=== PATIENT | female | born 2005 | race Caucasian/White ===

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

== ENCOUNTER 2023-02-01 18:39 | Emergency (ER) | payer OTHER, SELFPAY ==
--- NOTE | 2023-02-01 18:41 | XR_ITS ---
PROCEDURE INFORMATION: Exam: XR Left Foot Exam date and time: 02/01/2023 6:51 PM Age: 17 years old Clinical indication: Pain; Heel; Left; Additional info: Fall TECHNIQUE: Imaging protocol: Radiologic exam of the left foot. Views: 3 or more views. COMPARISON: CR ANKCMLT XR ankle LT min 3V 04/30/2018 8:55 PM FINDINGS: Bones/joints: Normal. Soft tissues: Normal. IMPRESSION: No acute findings.
--- OUTSIDE RECORDS SUMMARY | 2023-02-01 18:42 | XMS_ITS | Continuity of Care Document ---
Author Name Unknown Address [address] [place] [address] [phone] Organization [facility] Phone Care Team Providers Care Head Of Talent Management Name Role Phone MONIQUE CASTAÑEDA Admitting Unavailable NGOC GARCIAS Primary Care NGOC GARCIAS Unavailable MONIQUE CASTAÑEDA Primary Attending Unavailabl e ALLERGIES AND ADVERSE REACTIONS ALLERGIES AND ADVERSE REACTIONS Code System Allergy Substance Adverse Reaction Date Reaction (Severity) Comment Status Reported By Updated By No Known Allergies EDISUSER on October 07, 2022 3:29:48 AM UTC RESULTS Patient: MEÑO Shine Date of : [birth year] 004 0 LABORATORY RESULTS ORDER 100: CBC AUTO W DIFF ( LOINC: 77468-0) ORDER DATE: October 07, 2022 3:43:00 AM UTC Specimen Source: EDTA PERFORMING LAB: [address] [id number] Result Comment: Final Result Date: October 07, 2022 4:22:00 AM UTC (TECH: CRM) LOINC TEST FLAG RESULT REFERENCE RANGE UPDA RADHA BY 6690-2 Leukocytes [#/volume] in Blood by Automated count H 14.0 K/ul 4.0 K/ul - 10.5 K/ul October 07, 2022 4:22:00 AM UTC (TECH: CRM) 789-8 Erythrocytes [#/volume] in Blood by Automated count N 4.8 M/mm3 4.2 M/mm3 - 6.4 M/mm3 October 07, 2022 4:22:00 AM UTC (TECH: CRM) 718-7 Hemoglobin [Mass/volume] in Blood N 13.6 gm/dl 12.5 gm/dl - 16.0 gm/dl October 07, 2022 4:22:00 AM UTC (TECH: CRM) 04048-6 Hematocrit [Volume Fraction] of Blood N 41.2 % 37.0 % - 47.0 % October 07, 2022 4:22:00 AM UTC (TECH: CRM) 787-2 Erythrocyte mean corpuscular volume [Entitic volume] by Automated count N 86.4 fl 78 fl - 100 fl October 07, 2022 4:22:00 AM UTC (TECH: CRM) 785-6 Erythrocyte mean corpuscular hemoglobin [Entitic mass] by Automated count N 28.5 pg 27 pg - 31 pg October 07, 2022 4:22:00 AM UTC (TECH: CRM) 786-4 Erythrocyte mean corpuscular hemoglobin concentration [Mass/volume] by Automated count N 33.0 g/dl 32 g/dl - 36 g/dl October 07, 2022 4:22:00 AM UTC (TECH: CRM) 51866-9 Erythrocyte distribution width [Ratio] N 12.8 % 11.5 % - 14.0 % October 07, 2022 4:22:00 AM UTC (TECH: [employer]) 777-3 Platelets [#/volume] in Blood by Automated count N 255 K/ul 150 K/ul - 450 K/ul October 07, 2022 4:22:00 AM UTC (TECH: [employer]) 03666-6 Neutrophils/100 leukocytes in Blood H 65.3 % 43 % - 65 % October 07, 2022 4:22:00 AM UTC (TECH: CRM) 736-9 Lymphocytes/100 leukocytes in Blood by Automated count N 24.0 % 20.5 % - 45.5 % October 07, 2022 4:22:00 AM UTC (TECH: [employer]) 5905-5 Monocytes/100 leukocytes in Blood by Automated count N 7.5 % 5.5 % - 11.7 % October 07, 2022 4:22:00 AM UTC (TECH: CRM) 713-8 Eosinophils/100 leukocytes in Blood by Automated count N 2.0 % 0.9 % - 2.9 % October 07, 2022 4:22:00 AM UTC (TECH: CRM) 706-2 Basophils/100 leukocytes in Blood by Automated count N 0.5 % 0.2 % - 1.0 % October 07, 2022 4:22:00 AM UTC (TECH: [employer]) 38364-4 Neutrophils [#/volume] in Blood H 9.2 K/uL 2.2 K/uL - 4.8 K/uL October 07, 2022 4:22:00 AM UTC (TECH: CRM) 731-0 Lymphocytes [#/volume] in Blood by Automated count H 3.4 CELL/MCL 1.3 CELL/MCL - 2.9 CELL/MCL October 07, 2022 4:22:00 AM UTC (TECH: CRM) 742-7 Monocytes [#/volume] in Blood by Automated count H 1.1 CELL/MCL 0.3 CELL/MCL - 0.8 CELL/MCL October 07, 2022 4:22:00 AM UTC (TECH: CRM) 711-2 Eosinophils [#/volume] in Blood by Automated count H 0.3 CELL/MCL 0 CELL/MCL - 0.2 CELL/MCL October 07, 2022 4:22:00 AM UTC (TECH: CRM) 704-7 Basophils [#/volume] in Blood by Automated count N 0.1 CELL/MCL 0.0 CELL/MCL - 1.0 CELL/MCL October 07, 2022 4:22:00 AM UTC (TECH: CRM) 88306-8 Manual Differential panel - Blood N NO October 07, 2022 4:22:00 AM UTC (TECH: CRM) ORDER 200: COMP METABOLIC PA CHLOE (LOINC: 04722-1) ORDER DATE: October 07, 2022 3:43:00 AM UT Specimen Source: PLASMA PERFORMING LAB: [address] [id number] Result Comment: Final Result Date: October 07, 2022 5:28:00 AM UT (TECH: [email or web address]) LOINC TEST FLAG RESULT REFERENCE RANGE UPDATED BY 2951-2 Sodium [Moles/volume ] in Serum or Plasma N 137 mmol/L 136 mmol/L - 145 mmol/L October 07, 2022 5:28:00 AM UTC (TECH: ME) 2823-3 Potassium [Moles/volume] in Serum or Plasma N 3.7 mmol/L 3.6 mmol/L - 5.0 mmol/L October 07, 2022 5:28:00 AM UTC (TECH: ME) 2075-0 Chloride [Moles/volume] in Serum or Plasma N 101 mmol/L 98 mmol/L - 107 mmol/L October 07, 2022 5:28:00 AM UT ([employer]: [email or web address]) 8-9 Carbon dioxide, tota l [Moles/volume] in Serum or Plasma N 27.0 mmol/L 21.0 mmol/L - 32.0 mmol/L October 07, 2022 5:28:00 AM [facility] ([employer]: [email or web address]) 41750-3 Anion gap in Blood N 12.7 S eptember 2022 5:28:00 AM [facility] (TECH: [email or web address]) 2345-7 Glucose [Mass/volume ] in Serum or Plasma H 133 mg/dl 70 mg/dl - 120 mg/dl October 07, 2022 5:28:00 AM [facility] (TECH: [email or web address]) 6299-2 Urea nitrogen [Mass/volume] in Blood N 8 mg/dL 7 mg/dL - 18 mg/dL October 07, 2022 5:28:00 AM [facility] ([employer]: [email or web address]) 64463-0 Creatinine [Moles/volume] in Serum or Plasma --baseline N 0.7 mg/dL 0.6 mg/dL - 1.3 mg/dL October 07, 2022 5:28:00 AM [facility] ([employer]: [email or web address]) 02965-5 Glomerular filtratio n rate/1.73 sq M.predicted by Creatinine-based formula (MDRD) N >60 mlpermin 60 mlpermin October 07, 2022 5:28:00 AM [facility] (TECH: [email or web address]) 2885-2 Protein [Mass/volume ] in Serum or Plasma N 8.2 g/dl 6.4 g/dl - 8.2 g/dl October 07, 2022 5:28:00 AM [facility] (TECH: [email or web address]) 1751-7 Albumin [Mass/volume ] in Serum or Plasma N 3.7 g/dl 3.4 g/dl - 5.0 g/dl October 07, 2022 5:28:00 AM [facility] ([employer]: [email or web address]) 2336-6 Globulin [Mass/volum e] in Serum N 4.5 October 07, 2022 5:28:00 AM [facility] (TECH: [email or web address]) 1759-0 Albumin/Globulin [Ma ss Ratio] in Serum or Plasma N 0.8 0.7 - 2 October 07, 2022 5:28:00 AM [facility] ([employer]) 38534-0 Calcium [Mass/volume ] in Serum or Plasma N 9.5 mg/dl 8.5 mg/dl - 10.5 mg/dl October 07, 2022 5:28:00 AM [facility] ([employer]) 1974- Bilirubin.total [Mass/volume] in Serum or Plasma N 0.20 mg/dL 0.10 mg/dL - 1.00 mg/dL October 07, 2022 5:28:00 AM [facility] ([employer]) 0-8 Aspartate aminotransferase [Enzymatic activity/volume] in Serum or Plasma N 28 U/L 0 U/L - 37 U/L October 07, 2022 5:28:00 AM UT ([employer]) 1742-6 Alanine aminotransferase [Enzymatic activity/volume] in Serum or Plasma N 58 U/L 0 U/L - 65 U/L October 07, 2022 5:28:00 AM [facility] ([employer]) 6768-6 Alkaline phosphatase [Enzymatic activity/volume] in Serum or Plasma N 103 U/L 46 U/L - 116 U/L October 07, 2022 5:28:00 AM [facility] ([employer]) ORDER 300: HCG QUALITATIVE S GRANT (LOINC: 2117-09) ORDER DATE: October 07, 2022 3:43:00 AM [facility] Specimen Source: SERUM PERFORMING LAB: [address] [id number] Result Comment: Final Result Date: October 07, 2022 4:34:00 AM [facility] ([employer]) LOINC TEST FLAG RESULT REFERENCE RANGE UPDA RADHA BY 2117-09 Choriogonadotropin ( test) [Presence] in Serum or Plasma N NEGATIVE NEGATIVE October 07, 2022 4:34:00 AM [facility] ([employer]) 09495-6 Reagent Lot number N [id number] S eptember 2022 4:34:00 AM [facility] ([employer]) 63197-8 Choriogonadotropin [Units/volume] in Serum or Plasma N 07-28-2023 October 07 4:34:00 AM [facility] (TECH: [email or web address]) 34141-7 Internal control result N OK POSITI VE October 07, 2022 4:34:00 AM [facility] ([employer]: [email or web address]) LABORATORY NARRATIVE RESULTS Information is not available RADIOLOGY RESULTS ORDER 400: CT BRAIN W/O ([place]: [address]-2) ORDER DATE: October 07, 2022 3:43:00 AM UT PATHOLOGY NARRATIVE RESULTS Information is not available MICROBIOLOGY RESULTS No Micro Labs/Results Exist for Patient BLOOD ADMIN RESULTS Information is not available MEDICATIONS HOME MEDICATIONS Status RXNORM Medication Dose Route Frequency Dates Comments R eported By Updated By Drug Treatment Unknown DISCHARGE MEDICATIONS Status RXNORM Medication Dose Route Frequency Dates Comments Physic courtney Updated By No Discharge Medication Info rmation Available INPATIENT MEDICATIONS Status RXNORM Medication Dose Route Frequency Rate Quantity Dates Comments Physician Updated By Vibha inued [id number] prochlorper azine (COMPAZINE) 10 MG/2 ML SOLN 10.0 MG IV PUSH ONE TIME ONLY (SCHEDULED DOSE) Start: 2022 3:55:0 0 AM UT End: 2022 4:57:0 0 AM UT LUDOVIPaul WATTSOR D INTERFAC ED on 2022 4:00:00 AM UT Vibha inued [id number] ketorolac (TORADOL) 15 MG/ML SOLN 15.0 MG IV PUSH ONE TIME ONLY (SCHEDULED DOSE) Start: 2022 3:55:0 0 AM UTC End: 2022 4:57:0 0 AM UT LUDSILVIAY MONIQUE D INTERFAC ED on 2022 4:00:00 AM UT SOCIAL HISTORY SOCIAL HISTORY SNOMED-CT Social History Element Description Effective Dates Offered Cessation Comment UpdatedBy [id number] Smoking Status Unknown If Ever Smoked SOCIAL HISTORY - Gender Sex: Female SOCIAL HISTORY - Sexual Behavior Sexual Orientation Gender Identity SNOMED-CT Description SNO MED -CT Description Activity Level No of Partners Partner Type UpdatedBy VITAL SIGNS PATIENT VITAL SIGNS This section displays the mo st recent value for each vital sign as of October 07, 2022 5:57:20 AM UT Loinc Code Vital Sign Activity Date Result Updated By 8867-4 Heart rate October 07 3:45:00 AM UT 106 /min EDISUSER on October 07, 2022 4:06:30 AM [facility] PEDIATRIC GROWTH CHART - VITAL SIGNS This section displays Head C ircumference Percentile, Weight for Length Percentile and BMI Percentile Loinc Code Pediatric Measure Age (Months) Result Updat ed By HEALTH CONCERNS Problems Concern Status Health Concern problem infor mation not available. Smoking Status Status Years Used Consumed packs p er day Health Concern smoking histo ry information not available. Family History Concern Status Health Concern family histor y information not available. ENCOUNTERS ENCOUNTER INFORMATION Reason for Visit KNOT ON HEAD/HEADACH E, LOW BACK PAIN Admission October 07, 2022 3:07:00 AM UTC [place] [id number] [facility] [id number] Discharge October 07, 2022 4:57:00 AM UTC LEFT AGAINST ADVICE OR DISCONTINUED ENCOUNTER DIAGNOSES Notes information is not chaz ilable. Code System Diagnosis Onset Date Diagnosis information is not available. ABSTRACT DIAGNOSES Code System Diagnosis Updated By Abstract Diagnosis informati on is not available. CARE TEAM Care Head Of Talent Management Role MONIQUE CASTAÑEDA Admitting NGOC GARCIAS Primary Care NGOC GARCIAS Referring MONIQUE CASTAÑEDA Primary Attending CARE TEAM CARE insurance risk manager Role on Team Status Start Date End Date Update d By DEITER GROSSMAN PCP normal October 07, 2022 3:38:35 AM UTC October 07, 2022 4:57:00 AM UTC [id number] on October 07, 2022 3:38:35 AM UTC DIETER GROSSMAN Referring normal October 07, 2022 3:38:35 AM UTC October 07, 2022 4:57:00 AM UTC [id number] on October 07, 2022 3:38:35 AM UTC GARRY Shine Attending normal October 07, 2022 3:38:35 AM UTC October 07, 2022 4:57:00 AM UTC [id number] on October 07, 2022 3:38:35 AM UTC GARRY Shine Admitting normal October 07, 2022 3:38:35 AM UTC October 07, 2022 4:57:00 AM UTC [id number] on October 07, 2022 3:38:35 AM UTC NO DEFINED PRIMARY C PCP normal October 07, 2022 3:08:12 AM UTC October 07, 2022 3:38:35 AM UTC [id number] on October 07, 2022 3:38:35 AM UTC
--- OUTSIDE RECORDS SUMMARY | 2023-02-01 18:42 | XMS_ITS | Continuity of Care Document ---
Author Name Unknown Address [address] [place] [phone] Organization [facility] Phone Care Team Providers Care Gear Coding Machine Operator Name Role Phone MONIQUE CASTAÑEDA Admitting Unavailable [...] 100: CBC AUTO W DIFF ( LOINC: 87218-2) ORDER DATE: October 07, 2022 3:43:00 AM UTC Specimen Source: EDTA PERFORMING LAB: [address] [id number] Result Comment: Final Result Date: October 07, [...] 07, 2022 4:22:00 AM UTC (TECH: CRM) 13526-5 Hematocrit [Volume Fraction] of Blood N 41.2 [...] 07, 2022 4:22:00 AM UTC (TECH: CRM) 70472-8 Erythrocyte distribution width [Ratio] N 12.8 % 11.5 % - 14.0 % October 07, 2022 4:22:00 AM UTC (TECH: [employer]) 777-3 Platelets [#/volume] in Blood by Automated count N 255 K/ul 150 K/ul - 450 K/ul October 07, 2022 4:22:00 AM UTC (TECH: [employer]) 02670-2 Neutrophils/100 leukocytes in Blood H 65.3 % 43 % - 65 % October 07, 2022 4:22:00 AM UTC (TECH: CRM) 736-9 Lymphocytes/100 leukocytes in Blood by Automated count N 24.0 % 20.5 % - 45.5 % October 07, 2022 4:22:00 AM UTC (TECH: [employer]) 5905-5 Monocytes/100 leukocytes in Blood by Automated [...] October 07, 2022 4:22:00 AM UTC (TECH: [employer]) 92753-4 Neutrophils [#/volume] in Blood H 9.2 K/uL [...] 07, 2022 4:22:00 AM UTC (TECH: CRM) 02065-4 Manual Differential panel - Blood N NO October 07, 2022 4:22:00 AM UTC (TECH: CRM) ORDER 200: COMP METABOLIC PA CHLOE (LOINC: 06501-0) ORDER DATE: October 07, 2022 3:43:00 AM UT Specimen Source: PLASMA PERFORMING LAB: [address] [id number] Result Comment: Final Result Date: October 07, 2022 5:28:00 AM UT (TECH: [employer]) LOINC TEST FLAG RESULT REFERENCE RANGE UPDATED [...] mmol/L October 07, 2022 5:28:00 AM UT ([employer]: [employer]) 8-9 Carbon dioxide, tota l [Moles/volume] in Serum or Plasma N 27.0 mmol/L 21.0 mmol/L - 32.0 mmol/L October 07, 2022 5:28:00 AM [facility] ([employer]: [employer]) 90246-6 Anion gap in Blood N 12.7 S eptember 2022 5:28:00 AM [facility] (TECH: [employer]) 2345-7 Glucose [Mass/volume ] in Serum or Plasma H 133 mg/dl 70 mg/dl - 120 mg/dl October 07, 2022 5:28:00 AM [facility] (TECH: [employer]) 6299-2 Urea nitrogen [Mass/volume] in Blood N 8 mg/dL 7 mg/dL - 18 mg/dL October 07, 2022 5:28:00 AM [facility] ([employer]: [employer]) 04805-7 Creatinine [Moles/volume] in Serum or Plasma --baseline N 0.7 mg/dL 0.6 mg/dL - 1.3 mg/dL October 07, 2022 5:28:00 AM [facility] ([employer]: [employer]) 85582-6 Glomerular filtratio n rate/1.73 sq M.predicted by Creatinine-based formula (MDRD) N >60 mlpermin 60 mlpermin October 07, 2022 5:28:00 AM [facility] (TECH: [employer]) 2885-2 Protein [Mass/volume ] in Serum or Plasma N 8.2 g/dl 6.4 g/dl - 8.2 g/dl October 07, 2022 5:28:00 AM [facility] (TECH: [employer]) 1751-7 Albumin [Mass/volume ] in Serum or Plasma N 3.7 g/dl 3.4 g/dl - 5.0 g/dl October 07, 2022 5:28:00 AM [facility] ([employer]: [employer]) 2336-6 Globulin [Mass/volum e] in Serum N 4.5 October 07, 2022 5:28:00 AM [facility] (TECH: [employer]) 1759-0 Albumin/Globulin [Ma ss Ratio] in Serum or Plasma N 0.8 0.7 - 2 October 07, 2022 5:28:00 AM [facility] ([employer]) 74003-3 Calcium [Mass/volume ] in Serum or Plasma N 9.5 mg/dl 8.5 mg/dl - 10.5 mg/dl October 07, 2022 5:28:00 AM [facility] ([employer]) 1974- Bilirubin.total [Mass/volume] in Serum or Plasma N 0.20 mg/dL 0.10 mg/dL - 1.00 mg/dL October 07, 2022 5:28:00 AM [facility] ([employer]) 0-8 Aspartate aminotransferase [Enzymatic activity/volume] in Serum or Plasma N 28 U/L 0 U/L - 37 U/L October 07, 2022 5:28:00 AM UT ([employer]) 1742-6 Alanine aminotransferase [Enzymatic activity/volume] in Serum or Plasma N 58 U/L 0 U/L - 65 U/L October 07, 2022 5:28:00 AM [facility] ([employer]) 6768-6 Alkaline phosphatase [Enzymatic activity/volume] in Serum or Plasma N 103 U/L 46 U/L - 116 U/L October 07, 2022 5:28:00 AM [facility] ([employer]) ORDER 300: HCG QUALITATIVE S GRANT (LOINC: 2117-09) ORDER DATE: October 07, 2022 3:43:00 AM [facility] Specimen Source: SERUM PERFORMING LAB: [address] [id number] Result Comment: Final Result Date: October 07, 2022 4:34:00 AM [facility] ([employer]) LOINC TEST FLAG RESULT REFERENCE RANGE UPDA RADHA BY 2117-09 Choriogonadotropin ( test) [Presence] in Serum or Plasma N NEGATIVE NEGATIVE October 07, 2022 4:34:00 AM [facility] ([employer]) 84140-6 Reagent Lot number N [id number] S eptember 2022 4:34:00 AM [facility] ([employer]) 31458-4 Choriogonadotropin [Units/volume] in Serum or Plasma N 07-28-2023 October 07 4:34:00 AM [facility] (TECH: [employer]) 19920-6 Internal control result N OK POSITI VE October 07, 2022 4:34:00 AM [facility] ([employer]: [employer]) LABORATORY NARRATIVE RESULTS Information is not available RADIOLOGY RESULTS ORDER 400: CT BRAIN W/O ([place]STOPHER [place]: [address]-3) ORDER DATE: October 07, 2022 3:43:00 AM [...] Dates Comments Physician Updated By Vibha inued [id number] prochlorper azine (COMPAZINE) 10 MG/2 ML SOLN 10.0 MG IV PUSH ONE TIME ONLY (SCHEDULED DOSE) Start: 2022 3:55:0 0 AM UT End: 2022 4:57:0 0 AM UT LUDOVIPaul WATTSOR D INTERFAC ED on 2022 4:00:00 AM UT Vibha inued [id number] ketorolac (TORADOL) 15 MG/ML SOLN 15.0 MG IV PUSH ONE TIME ONLY (SCHEDULED DOSE) Start: 2022 3:55:0 0 AM UTC End: 2022 4:57:0 0 AM UT LUDSILVIAPaul MONIQUE D INTERFAC ED on 2022 4:00:00 AM [facility] SOCIAL HISTORY SOCIAL HISTORY SNOMED-CT Social History Element Description Effective Dates Offered Cessation Comment UpdatedBy [id number] Smoking Status Unknown If Ever Smoked SOCIAL HISTORY - Gender Sex: Female SOCIAL HISTORY - Sexual Behavior Sexual Orientation Gender Identity SNOMED-CT Description SNO MED -CT Description Activity Level No of Partners Partner Type UpdatedBy VITAL SIGNS PATIENT VITAL SIGNS This section displays the mo st recent value for each vital sign as of October 13, 2022 1:28:15 PM UT Loinc Code Vital Sign Activity Date [...] PAIN Admission October 07, 2022 3:07:00 AM [place] [id number] [facility] [id number] Discharge October 07, 2022 4:57:00 AM UT LEFT AGAINST ADVICE OR DISCONTINUED ENCOUNTER DIAGNOSES Notes information is not chaz ilable. Code System Diagnosis Onset Date Diagnosis information is not available. ABSTRACT DIAGNOSES Code System Diagnosis Updated By R51.9 ICD10 HEADACHE, UNSPECIFIED [id number] on October 13, 2022 1:27:18 PM UT R51.9 ICD10 HEADACHE, UNSPECIFIED [id number] 7 on October 13, 2022 1:27:18 PM UT Z28.310 ICD10 UNVACCINATED FOR COVID-19 DB E4857 on October 13, 2022 1:27:18 PM UT Z53.29 ICD10 PROCEDURE AND TR EATMENT NOT CARRIED OUT BECAUSE OF PATIENT'S DECISION FOR OTHER REASONS [id number] on October 13, 2022 1:27:18 PM [facility] CARE TEAM Care Gear Coding Machine Operator Role MONIQUE CASTAÑEDA Admitting NGOC GARCIAS Primary Care NGOC GARCIAS Referring MONIQUE CASTAÑEDA Primary Attending CARE TEAM CARE combo welder Role on Team Status Start Date End Date Update d By DIETER GROSSMAN PCP normal October 07, 2022 3:38:35 AM UT October 07, 2022 4:57:00 AM UT [id number] on October 07, 2022 3:38:35 AM UT DIETER GROSSMAN Referring normal October 07, 2022 3:38:35 AM UT October 07, 2022 4:57:00 AM UT [id number] on October 07, 2022 3:38:35 AM [facility] GARRY Shine Attending normal October 07, 2022 3:38:35 AM UT October 07, 2022 4:57:00 AM UT [id number] on October 07, 2022 3:38:35 AM [facility] GARRY Shine Admitting normal October 07, 2022 3:38:35 AM UT October 07, 2022 4:57:00 AM UT [id number] on October 07, 2022 3:38:35 AM UT NO DEFINED PRIMARY C PCP normal October 07, 2022 3:08:12 AM UT October 07, 2022 3:38:35 AM [facility] [id number] on October 07, 2022 3:38:35 AM UT
[2023-02-01 19:18] VITALS: BP 128/86; PULSE 78; RESP 19; TEMP 37; O2SAT 99; BMI 31.1
--- NOTE | 2023-02-01 19:30 | EXP.UTC ---
Discharge Plan Disposition Patient Disposition: Home, Self-Care Condition: Good Prescriptions Prescriptions: New bacitracin 500 unit/gram ointment 1 applic topical TID 10 Days Qty: 30 0RF Rx Instructions: apply to wound on left foot as directed No Action methylphenidate HCl [Concerta] 54 mg tablet extended release 24hr 54 mg PO DAILY fluoxetine 10 mg capsule 10 mg PO DAILY ixbmbmerqtjggen-uowkgghfu-VL [Bromfed DM] 2-30-10 mg/5 mL Syrup 5 ml PO Q6H PRN (Reason: Cough) Qty: 240 0RF ondansetron 4 mg Tablet,Disintegrating 4 mg PO Q8H PRN (Reason: Nausea) Qty: 12 0RF Referrals Follow up/Referrals: Harry Hassan MD [Primary Care Provider] - See instructions Activity Restrictions/Add. Instructions Additional Instructions/Restrictions: Keep wound clean and dry Use topical Bacitracin as prescribed Watch area for signs of infection and if noted follow up with your Family Doctor Clinical Impressions Clinical Impression: Abrasion of foot Qualifiers: Encounter type: initial encounter Laterality: left Qualified Code(s): S90.812A - Abrasion, left foot, initial encounter Instructions Patient Instructions: DI for Abrasion, Bacitracin Topical Discharge ED Provider: Ivonne Medina [facility] General Stated complaint: AO fall 02/01, left foot pain Time Seen by Provider: 02/01/23 19:30 Description of Symptoms (Recalled from Triage Doc. by RN): pt states that she slipped off of a step and then stepped on a nail injurying her left foot HEENT Symptoms (Recalled from RN notes): No Resp Symptoms (Recalled from RN notes): No Skin Symptoms (Recalled from RN notes): No MS Symptoms (Recalled from RN notes): No Functional Status (Recalled from RN notes): wnl History of Present Illness Provider Complaint: Patient states that she was coming down the steps at her mothers this morning when he foot slipped and there was a nail sticking out and scratched her on the back of her left heel area States that this evening her foot was hurting when she would try to walk on it so she came in to get it checked Related Data Home Medications Medication Instructions Recorded Confirmed fluoxetine 10 mg capsule 10 mg PO DAILY 12/21/21 12/21/21 methylphenidate HCl 54 mg 54 mg PO DAILY 12/21/21 12/21/21 tablet,extended release 24 hr (Concerta) Previous Rx's Medication Instructions Recorded ujfouoxreaizmqk-amjcvwgfutgsrob-FP 5 ml PO Q6H PRN Cough #240 mL 12/25/21 2 mg-30 mg-10 mg/5 mL oral syrup (Bromfed DM) ondansetron 4 mg disintegrating 4 mg PO Q8H PRN Nausea #12 tabs 12/25/21 tablet bacitracin 500 unit/gram topical 1 applic topical TID 10 days #30 02/01/23 ointment grams Allergies Allergy/AdvReac Type Severity Reaction Status Date / Time amoxicillin [AMOXICILLIN] Allergy Unknown Verified 12/25/21 20:00 Worker's Comp Is this a Worker's Comp case?: No [facility] Disclaimer: The information contained in this section may have been updated after the patient was seen, as this information can be updated by other users. Medical History Nexplanon removal Surgical History History of placement of ear tubes Social History Smoking Status: Never smoker alcohol intake: never substance use type: denies use current occupational status: student Travel in the last 8 weeks: None ROS Obtained: Yes All systems reviewed & no additional complaints except as documented and Yes Systems reviewed as appropriate & no additional complaints except as documented Constitutional Constitutional: Reports system reviewed and no additional complaints, except as documented and Reports as per HPI ENT Ears, Nose, Mouth, and Throat: Reports system reviewed and no additional complaints, except as documented and Reports as per HPI Cardiovascular Cardiovascular: Reports system reviewed and no additional complaints, except as documented and Reports as per HPI Respiratory Respiratory: Reports system reviewed and no additional complaints, except as documented and Reports as per HPI Gastrointestinal Gastrointestingal: Reports system reviewed and no additional complaints, except as documented and as per HPI Musculoskeletal Musculoskeletal: Reports system reviewed and no additional complaints, except as documented and Reports as per HPI Integumentary/Breasts Skin/Breast: Reports system reviewed and no additional complaints, except as documented and Reports as per HPI Comments: abrasion on back of left heel Physical Exam General General appearance: alert and in no apparent distress ENT ENT exam: Present mucous membranes moist Respiratory Respiratory exam: Present normal lung sounds bilaterally; Absent respiratory distress or wheezes Cardiovascular Cardiovascular exam: Present regular rate, normal rhythm and normal heart sounds Expanded Lower Extremity Exam Left: Ankle image: 1. small abrasion noted no active bleeding cleaned well with hibacleanse and saline Gait: observed and limited by pain Neurological Exam Neurological exam: Present alert, oriented X3 and normal gait Medical Decision Making Patrick Inquiry Pt receiving controlled substance: No Patrick was queried for this patient: No Vital Signs: 02/01/23 19:18 Temperature 98.6 F Temperature Source Oral Pulse Rate [Right Brachial] 78 Respiratory Rate 19 Blood Pressure [Right Arm] 128/86 Blood Pressure Mean [Right Arm] 100 Blood Pressure Source [Right Arm] Automatic Cuff Blood Pressure Position [Right Arm] Sitting 02 Sat by Pulse Oximetry 99 Orders (Tests/Meds): ORDERS Category Date Time Status XR foot LT min 3V Stat Exams 02/01/23 18:41 Completed Radiology Data #1: Image(s): Foot/Toes Image Reviewed: Yes I have reviewed radiologist's interpretation FINDINGS: Bones/joints: Normal. Soft tissues: Normal. IMPRESSION: No acute findings. Medical Decision Narrative: patient unsure of last tetanus
[2023-02-01] MEDS: TET/DIPHTH/PERT-ADULT 0.5ML SYRINGE 0.5 ML IM (19:43)
[2023-02-01 20:07] VITALS: BP 128/86; PULSE 78; RESP 19; TEMP 37; O2SAT 99
== END 2023-02-01 20:08 | disposition home or self-care (01) ==
PROVIDERS: Emergency Provider Nurse Practitioner; PCP Family Medicine
DX: S90.812A Abrasion, left foot, initial encounter (principal); M79.672 Pain in left foot; W10.8XXA Fall (on) (from) other stairs and steps, initial encounter
CPT/HCPCS: 73630; 90471; 90715; 99212; 99214; G0463

== ENCOUNTER 2023-04-25 11:49 | Outpatient (CLI) | payer OTHER, SELFPAY ==
[2023-04-25 12:28] LABS: Basophils # 0.1 K/mm3 (0-0.2); Basophils % 1.2 % (0.1-2.0); Eosinophils # 0.3 K/mm3 (0.0-0.4); Eosinophils % 2.8 % (0.1-12.0); Hematocrit 43.6 % (37.0-47.0); Hemoglobin 14.3 g/dL (12.2-16.2); Lymphocytes % 27.5 % (10-50); Mean Corpuscular HGB Conc 32.9 g/dL (31.8-35.4); Mean Corpuscular Hemoglobin 29.6 pg (27.0-31.2); Mean Corpuscular Volume 90.2 fl (81-99); Mean Platelet Volume 8.8 fl (7.4-10.4); Monocytes # 0.4 K/mm3 (0.1-1.0); Monocytes % 4.1 % (1.7-9.3); Neutrophils # 6.9 K/mm3 (1.8-7.8); Neutrophils % 64.5 % (37.0-80.0); Platelet Count 255 K/mm3 (142-424); Red Blood Count 4.84 M/mm3 (4.20-5.40); Red Cell Distribution Width 13.6 % (11.5-17.5); White Blood Count 10.7 K/mm3 (4.5-13.0)
[2023-04-25 12:51] LABS: Alanine Aminotransferase 39 U/L (12-78); Albumin Level 4.3 g/dl (3.5-5.0); Albumin/Globulin Ratio 1.6 (1.1-1.8); Alkaline Phosphatase 79 U/L (38-126); Anion Gap 9.9 mEq/L (5-15); Aspartate Amino Transferase 35 U/L (14-36); Bilirubin,Total 0.3 mg/dl (0.2-1.3); Blood Urea Nitrogen 10 mg/dl (7-17); Calcium 9.5 mg/dl (8.4-10.2); Carbon Dioxide 29 mmol/L (22.0-30.0); Chloride 104 mmol/L (98-107); Estimated Glomerular Filt Rate 127 ml/min (>60); GFR (African American) 154 ML/MIN (>60); Globulin 2.7 g/dL (1.3-3.2); Glucose 100 mg/dl (74-100); Potassium 3.9 mmoL/L (3.5-5.1); Sodium 139 mmol/L (136-145)
[2023-04-25 13:22] LABS: Thyroid Stimulating Hormone 0.89 uIU/mL (0.465-4.68)
[2023-04-26 08:40] LABS: Estradiol 38.5 pg/mL (.); FSH 5.4 mIU/mL (.); Progesterone 0.1 ng/mL (.); Prolactin 9.3 ng/mL (4.8-33.4)
[2023-04-28 19:10] LABS: Testosterone, Total, LC/MS 26.1 ng/dL (10.0-55.0)
== END 2023-04-25 23:59 ==
LOC: LAB 11:49
PROVIDERS: PCP Family Medicine; Visit Provider Obstetrics & Gynecology
DX: N91.1 Secondary amenorrhea (principal)
CPT/HCPCS: 36415; 80053; 82626; 82670; 83001; 83002; 83498; 84144; 84146; 84443; 85025

== ENCOUNTER 2023-06-15 12:53 | Outpatient (CLI) | payer OTHER, SELFPAY ==
--- NOTE | 2023-06-15 12:53 | US_ITS ---
PROCEDURE: US TRANSVAGINAL CLINICAL INDICATION: pelvic pain COMPARISON: CT CT ABDOMEN PELVIS W CON from 06/14/2022 FINDINGS: Transvaginal sonographic images of the pelvis were obtained. UTERUS: 8.0cm x 4.0cmx 3.6 cm anteverted with a combined endometrial thickness of 8.2mm. There is an IUD in the correct position within the uterine cavity. There are multiple small nabothian cysts. The largest measures 0.7 cm. LEFT OVARY: 3.2cmx2.6 cm x2.6cm with a volume of 11.1ml. The ovary appears polycystic with multiple small peripheral follicles. RIGHT OVARY: 2.3cmx 3.3cmx3.8 cm with a volume of 15.1ml. The ovary appears polycystic with multiple small peripheral follicles. Both ovaries are seen and appear polycystic. Doppler flow to both ovaries are seen. There is no fluid in the cul-de-sac. IMPRESSION: 1. Anteverted uterus normal in shape and size. 2. There is an IUD in the correct position within the uterine cavity. 3. Both ovaries are seen and appear polycystic. 4. No fluid in the cul-de-sac. Dictated by: Shreyas Pendleton MD 06/15/2023 17:21 Shreyas Pendleton MD in OV 06/15/2023 17:21
== END 2023-06-15 23:59 | disposition home or self-care (01) ==
LOC: RAD 12:53
PROVIDERS: PCP Family Medicine; Visit Provider Obstetrics & Gynecology
DX: R10.2 Pelvic and perineal pain (principal)
CPT/HCPCS: 76830

== ENCOUNTER 2024-08-13 12:20 | Outpatient (RCR) | payer OTHER, SELFPAY | END 2024-08-13 23:59 | disposition home or self-care (01) | LOC: PT 12:20 | PROVIDERS: Visit Provider Physician Assistant | DX: S49.91XA Unspecified injury of right shoulder and upper arm, initial encounter (principal) | CPT/HCPCS: 97161 ==

== ENCOUNTER 2024-11-04 15:00 | Outpatient (RCR) | payer BC, SELFPAY | END 2024-11-04 23:59 | disposition home or self-care (01) | LOC: OT 15:00 | PROVIDERS: Visit Provider Physician Assistant | DX: S49.91XA Unspecified injury of right shoulder and upper arm, initial encounter (principal) | CPT/HCPCS: 97014; 97110; 97140; 97166; G0283 ==

== ENCOUNTER 2024-11-20 11:20 | Outpatient (CLI) | payer BC, SELFPAY ==
--- OUTSIDE RECORDS SUMMARY | 2024-11-20 11:24 | XMS_ITS | Clinical Summary ---
Author Organization [facility] Address [address] [place] [address] Care Team Providers Care Men'S Basketball Coach Name Role Phone Lorena Malik APRN Primary Care Provider [phone] Allergies Active Allergy Reactions Criticality Noted Date Comments Amoxicillin Unknown - Low Severity 12/25/2021 Medications CYCLOBENZAPRINE 10MG/5ML SUSP 11/10/2023 Activ e meloxicam (MOBIC) 15 MG tablet 11/10/2023 Active predniSONE (DELTASONE) 20 MG tablet 11/10/2023 Active sertraline (ZOLOFT) 25 MG tablet 11/10/2023 Active ibuprofen (ADVIL,MOTRIN) 800 MG tablet take 1 tablet by mouth every 8 hours as needed with food or milk 06/05/2024 Active Encounters Date Type Department Care Team Description 11/08/2024 Telephone [facility] ORTHOPED[facility] & [facility]ORTS MEDICINE [address] [place] [address] Meli Sánchez PA-C STICKLEN - MRI APPT REQ 10/10/2024 Telephone [facility] [address] [place] [address] Meli Sánchez PA-C 10/09/2024 Documentation [facility] [address] [place] [address] Meli Sánchez PA-C 10/04/2024 Telephone [facility] [address] [place] [address] Meli Sánchez PA-C STICKLEN- PAPERWORK 09/30/2024 Telephone [facility] [address] [place] [address] Meli Sánchez PA-C BROOKE STICKLEN - QUESTIONS 09/11/2024 Telephone [facility] [address] [place] [address] Meli Sánchez PA-C 08/26/2024 Telephone [facility] [address] [place] [address] Meli Sánchez PA-C Med Management from Last 3 Months Social History Tobacco Use Types Packs/Day Years Used Date Smoking Tobacco: Never Passive Smoke Exposure: Never Smokeless Tobacco: Never Tobacco Cessation:Counseling Given: Not Answered Alcohol Use Standard Drinks/Week Comments Never 0 (1 standard drink = 0.6 oz pur e alcohol) Comments Unknown Sex and Gender Information Value Date Recorded Sex Assigned at Female 11/05/2024 11:25 AM EDT Legal Sex Female 9:12 AM EDT Gender Identity Not on file Sexual Orientation Straight 11/05/2024 11 :25 AM EDT Last Filed Vital Signs Vital Sign Reading Time Taken Comments Blood Pressure 110/80 07/16/2024 1:58 PM EDT Pulse - - Temperature - - Respiratory Rate - - Oxygen Saturation - - Inhaled Oxygen Concentration - - Weight 82 kg (180 lb 11.2 oz) 07/16/2024 1:58 PM EDT Height 154.9 cm (5' 0.98 ) 07/16/2024 1:58 PM ED T Body Mass Index 34.16 07/16/2024 1:58 PM EDT Plan of Treatment Health Maintenance Due Date Last Done Comments Annual Gynecologic Pelvic and Breast Exam 2003 MENINGOCOCCAL B VACCINE (1 of 2 - Standard) 2019 ANNUAL PHYSICAL 12/21/2023 CHLAMYDIA SCREENING 12/21/2023 HEPATITIS C SCREENING 12/21/2023 PAP SMEAR 02/22/2024 INFLUENZA VACCINE 09/06/2024 01/11/2007 TDAP/TD VACCINES (4 - Td or Tdap) 09/24/2033 09/25/2023, 02/01/2023, 07/04/2014 Pneumococcal Vaccine 0-49 Aged Out 2004, 2003, 2003, Additional history exists No longer eligible based on patient's age to complete this topic HPV VACCINES Completed 09/15/2015, 07/04/2014 MENINGOCOCCAL VACCINE Completed 09/08/2020, 015 Insurance RANJITH Care Teams Men'S Basketball Coach Relationship Specialty Start Date End Date Lorena Malik APRN [address] [place] [id number] PCP - General Nurse Practitioner 07/03/24
--- OUTSIDE RECORDS SUMMARY | 2024-11-20 11:24 | XMS_ITS | Encounter Summary ---
Author Organization [facility] Address [address] [place] [address] Care Team Providers Care Medical Education Specialist Name Role Phone Lorena Malik APRN Primary Care Provider [phone] Reason for Visit * Reason Onset Date Comments STICKLEN - MRI APPT REQ 11/08/2024 Encounter Details Date Type Department Care Team (Late st Contact Info) Description 11/08/[address] [facility] ORTHOPEDICS & SPORTS MEDICINE [address] [place] [address] Meli Sánchez PA-C [address] [place] [address] STICKLEN - MRI APPT REQ Social History Tobacco Use Types Packs/Day Years Used Date Smoking Tobacco: Never Passive Smoke Exposure: Never Smokeless Tobacco: Never Alcohol Use Standard Drinks/Week Comments Never 0 (1 standard drink = 0.6 oz pur e alcohol) Comments Unknown Sex and Gender Information Value Date Recorded Sex Assigned at Female 11/05/2024 11:25 AM EDT Legal Sex Female 9:12 AM EDT Gender Identity Not on file Sexual Orientation Straight 11/05/2024 11 :25 AM EDT documented as of this encounter Miscellaneous Notes * Telephone Encounter - Ann Marie Chi RegSched Rep - 11/08/2024 11:53 AM EDT CALLED WORK COMP TO CHECK STATUS OF MRI. NO ANSWER, LEFT VOICEMAIL. CALLED PATIENT AND PROVIDED AN UPDATE. * Telephone Encounter - Sandy Raman RegSched Rep - 11/08/2024 10:43 AM EDT Provider: VENICE Caller: Vinay Sands Relationship to Patient: Self Pharmacy: Reason for Call: PT CALLED TO GET THE MRI SCHEDULED, STATES P.T. IS HURTING HER REALLY BADLY documented in this encounter Plan of Treatment Not on file documented as of this encounter Visit Diagnoses Not on filedocumented in this encounter Care Teams Medical Education Specialist Relationship Specialty Start Date End Date Lorena Malik APRN [address] [place] [phone] PCP - General Nurse Practitioner 07/03/24 documented as of this encounter
--- OUTSIDE RECORDS SUMMARY | 2024-11-20 11:24 | XMS_ITS | Encounter Summary ---
Author Organization [facility] Address [address] [place] [address] Care Team Providers Care Artillery Specialist Name Role Phone Lorena Malik APRN Primary Care Provider [phone] Reason for Visit * Reason Onset Date Comments STICKLEN- PAPERWORK 10/04/2024 Encounter Details Date Type Department Care Team (Late st Contact Info) Description 10/04/2024 Telephone [facility] ORTHOPEDICS & SP[facility]TS MEDICINE [address] [place] [address] Willie Sánchez PA-C [address] [place] [address] STICKLEN- PAPERWORK Social History Tobacco Use Types Packs/Day Years [...] encounter Miscellaneous Notes * Telephone Encounter - Carmen Downey RegSched Rep - 10/09/2024 3:22 PM EDT PATIENT IS CALLING IN WANTING CLARIFICATION ON HER WORK STATUS. SHE WAS TOLD SHE WAS SUPPOSED TO BEOFF UNTIL AFTER SHE COMPLETES PHYSICAL THERAPY. HOWEVER, SHE GOT A CALL FROM [facility] ([facility] WHO TOLD HER THAT SHE WAS CLEARED FOR WORK AND SUPPOSED TO RETURN TOMORROW WITH RESTRICTIONS. SHE STATES THAT SHE HAD NO KNOWLEDGE OF THIS AND DOES NOT HOW THEY GOT THE INFORMATION. IF CLINICAL STAFF OR WILLIE COULD PLEASE ADVISE. IF POSSIBLE, TODAY, SINCE PATIENT IS NOW SUPPOSED TO GO TO WORK TOMORROW. CALL BACK # [phone] * Telephone Encounter - Inés Land PCT - 10/04/2024 11:44 AM EDT Caller:VINAY Relationship to Patient: SELF Phone Number: [phone] What form or medical record are you requesting: WORK NOTE CONTAINING RESTRICTIONS - DESK DUTY How would you like to receive the form or medical records (pick-up, mail, fax): FAX If fax, what is the fax number: [phone] documented in this encounter Plan of Treatment Not on file documented as of this encounter Visit Diagnoses Not on filedocumented in this encounter Care Teams Artillery Specialist Relationship Specialty Start Date End Date Lorena Malik APRN [address] [place] [address] PCP - General Nurse Practitioner 07/03/24 documented as of this encounter
--- OUTSIDE RECORDS SUMMARY | 2024-11-20 11:24 | XMS_ITS | Encounter Summary ---
Author Organization [facility] Address [address] [place] [address] Care Team Providers Care Mail Deliverer Name Role Phone Lorena Malik APRN Primary Care Provider [phone] Reason for Visit * Reason Onset Date Comments WILLIE SÁNCHEZ - QUESTIONS 09/30/2024 Encounter Details Date Type Department Care Team (Late st Contact Info) Description 09/30/2024 Telephone [facility] ORTHOPEDICS & SPORTS MEDICINE [address] [place] [address] Willie Sánchez PA-C [address] [place] [address] WILLIE SÁNCHEZ - QUESTIONS Social History Tobacco Use Types Packs/Day Years [...] encounter Miscellaneous Notes * Telephone Encounter - Caterina Valdivia R.T.(Birgit) - 10/01/2024 8:48 AM EDT Recommend 6 weeks of physical therapy and then we can reorder MRI. If PT worsens her symptoms may be able to get it approved sooner. I will put in order. Willie MELCHOR I left a message for the patient stating Willie message above. Caterina Cr (R) ROT * Telephone Encounter - Caterina Valdivia R.T.(Birgit) - 09/30/2024 4:56 PM EDT WC denied MRI, so patient is asking what are next steps. Caterina Cr (Birgit) ROT * Telephone Encounter - Ivonne Guzman RegSched Rep - 09/30/2024 4:19 PM EDT Provider: ELIZABETH Caller: Vinay Sands Relationship to Patient: Self Pharmacy: NA Reason for Call: HAS MEDICAL QUESTIONS ABOUT HER SHLDR documented in this encounter Plan of Treatment Not on file documented as of this encounter Visit Diagnoses Not on filedocumented in this encounter Care Teams Mail Deliverer Relationship Specialty Start Date End Date Lorena Malik APRN [address] [place] [address] PCP - General Nurse Practitioner 07/03/24 documented as of this encounter
--- OUTSIDE RECORDS SUMMARY | 2024-11-20 11:24 | XMS_ITS | Encounter Summary ---
Author Organization [facility] Address [address] [place] [id number] Care Team Providers Care Software Technical Lead Name Role Phone Lorena Malik APRN Primary Care Provider [phone] Encounter Details Date Type Department Care Team (Late st Contact Info) Description 10/10/2024 Telephone [facility] ORTHOPEDICS [facility]TS MEDICINE [address] [place] [address] Meli Sánchez PA-C [address] [address] Social History Tobacco Use Types Packs/Day Years [...] encounter Miscellaneous Notes * Telephone Encounter - Kristen Bustos RegSched Rep - 10/10/2024 12:19 PM EDT Patient called in - states that her job does not really have 'light duty' 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 Would like to know if she can get a note to advise to be off work while undergoing physical therapy. Scheduled a follow up for 11/12, PT starts 10/14. Please advise documented in this encounter Plan of Treatment Not on file documented as of this encounter Visit Diagnoses Not on filedocumented in this encounter Care Teams Software Technical Lead Relationship Specialty Start Date End Date Lorena Malik APRN [address] [place] [phone] PCP - General Nurse Practitioner 07/03/24 documented as of this encounter
--- OUTSIDE RECORDS SUMMARY | 2024-11-20 11:24 | XMS_ITS | Clinical Summary ---
Author Organization [facility] Address [address] [place], [place] [address] Care Team Providers Care Copying Machine Mechanic Name Role Phone Harry Hassan MD Primary Care Provider [phone] Allergies Active Allergy Reactions Criticality Noted Date Comments Amoxicillin Other - please docum ent in the comment field Low 12/25/2021 Medications Concerta 54 MG ER tablet 02/25/2021 Active cyclobenzaprine (Flexeril) 10 MG tablet 11/10/2023 Active meloxicam (Mobic) 15 MG tablet 11/10/2023 Active Active Problems No known active problems Social History Tobacco Use Types Packs/Day Years Used Date Smoking Tobacco: Never Tobacco Cessation:Counseling Given: Not Answered Comments Unknown Sex and Gender Information Value Date Recorded Sex Assigned at Not on file Legal Sex Female 12:33 PM EDT Gender Identity Not on file Sexual Orientation Not on file Last Filed Vital Signs Vital Sign Reading Time Taken Comments Blood Pressure 117/74 03/23/2021 8:15 AM EST Pulse 66 03/23/2021 8:15 AM EST Temperature - - Respiratory Rate - - Oxygen Saturation 100% 03/23/2021 8:15 AM EST Inhaled Oxygen Concentration - - Weight 71.2 kg (157 lb) 03/23/2021 8:15 AM EST Height 154.9 cm (5' 1 ) 03/23/2021 8:15 AM EST Body Mass Index 29.66 03/23/2021 8:15 AM EST Plan of Treatment Upcoming Encounters Date Type Department Care Team (Late st Contact Info) Description 01/14/2025 2:15 PM EST Office Visit [facility] [address] [place] [address] Bang Snell MD [address] [place] [address] Health Maintenance Due Date Last Done Comments [facility]-Depression Screening 2003 [facility]-HIV Screening 2003 [facility]-Hepatitis C Screening 2003 [facility]-Infant/Child/Adol SDOH Screenings 2003 [facility]- SDOH Screenings 2021 [facility]-Adult SDOH Screenings 2021 [facility]-Pap Smear 02/22/2024 [facility]-DTaP,Tdap,and Td Vaccines (7 - Td or Tdap) 07/04/2024 07/04/2014, 06/06/2007, 05/26/2004, Additional history exists [id number]-31 Vaccine ( - season) 2024 [facility]-Influenza Vaccine (#1) 2024 01/11/2007 [facility]-Zoster Vaccines (1 of 2) 2053 07/04/2014, 02/24/2004 [facility]-HIB Vaccines Completed 02/24/2004, , 2003 [facility]-Hepatitis B Vaccines Completed 005, 2003, 2003 [facility]-Pneumococcal Vaccine: Pediatrics (0 to 5 Years) and At-Risk Patients (6 to 49 Years) Aged Out 02/24/2004, 2003, 2003, Additional history exists No longer eligible based on patient's age to complete this topic [facility]-IPV Vaccines Completed 06/06/2007, 08/2003, 2003, Additional history exists [facility]-Varicella Vaccines Completed 07/04/2014, 2004 HPV Vaccines Completed 09/15/2015, 07/04/2014 [facility]-Hepatitis A Vaccines Completed 09/15/2015, 06/07 [facility]-Rotavirus Vaccines Aged Out No lo nger eligible based on patient's age to complete this topic Care Teams Copying Machine Mechanic Relationship Specialty Start Date End Date Harry Hassan MD [address] [place] [address] [facility] - General 06/19/20
--- OUTSIDE RECORDS SUMMARY | 2024-11-20 11:24 | XMS_ITS | Encounter Summary ---
Author Organization [facility] Address [address] [place] [id number] Care Team Providers Care Clerk Checker Name Role Phone Lorena Malik APRN Primary Care Provider [phone] Encounter Details Date Type Department Care Team (Late st Contact Info) Description 10/09/2024 Documentation [facility] ORTHOPEDICS & SPORTS MEDICINE [address] [place] [id number] Meli Sánchez PA-C [address] [facility] [address] [place] [address] Social History Tobacco Use Types Packs/Day Years [...] AM EDT documented as of this encounter Plan of Treatment Not on file documented as of this encounter Visit Diagnoses Not on filedocumented in this encounter Care Teams Clerk Checker Relationship Specialty Start Date End Date Lorena Malik APRN [address] [place] [phone] PCP - General Nurse Practitioner 07/03/24 documented as of this encounter
== END 2024-11-20 23:59 | disposition home or self-care (01) ==
PROVIDERS: PCP Nurse Practitioner; Visit Provider Obstetrics & Gynecology
DX: Z34.90 Encounter for supervision of normal pregnancy, unspecified, unspecified trimester (principal); Z3A.00 Weeks of gestation of pregnancy not specified
CPT/HCPCS: 36415; 84144; 84702

== ENCOUNTER 2024-12-19 12:21 | Outpatient (CLI) | payer BC, SELFPAY ==
--- OUTSIDE RECORDS SUMMARY | 2024-12-19 12:23 | XMS_ITS | Clinical Summary ---
Author Organization [facility] Address [address] [place] [address] Care Team Providers Care Janitorial Cleaner Name Role Phone Lorena Malik APRN Primary Care Provider [phone] Allergies Active Allergy Reactions Criticality Noted Date [...] Type Department Care Team Description 11/08/2024 Telephone [facility] ORTHOP[facility] & SPORTS MEDICINE [address] [place] [address] Meli Sánchez PA-C STICKLEN - MRI APPT REQ 10/10/2024 Telephone [facility]OP[facility]TS MEDICINE [address] [place] [address] Meli Sánchez PA-C 10/09/2024 Documentation [facility]THOP[facility] & [facility]TS MEDICINE [address] [place] [address] Meli Sánchez PA-C 10/04/2024 Telephone [facility] ORTHOPEDICS & SPORTS MEDICINE [address] [facility] [address] [place] [address] Meli Sánchez PA-C STICKLEN- PAPERWORK 09/30/2024 [facility] ORTHOPEDICS & SPORTS MEDICINE [address] [facility] [address] [place] [address] Meli Sánchez PA-C BROO[place] STICKLEN - QUESTIONS from Last 3 Months Social History Tobacco [...] Completed 09/08/2020, 015 Insurance RANJITH Care Teams Janitorial Cleaner Relationship Specialty Start Date End Date Lorena Malik APRN [address] [place] [phone] PCP - General Nurse Practitioner 07/03/24
--- OUTSIDE RECORDS SUMMARY | 2024-12-19 12:23 | XMS_ITS | Clinical Summary ---
Author Organization [facility] Address [address] [place], [place] [address] Care Team Providers Care Mobile Ui/Ux Designer Name Role Phone Harry Hassan MD Primary Care Provider [phone] Allergies Active Allergy Reactions Criticality Noted Date [...] [facility] [address] [place] [address] Bang Snell MD [address] [place] [address] Health Maintenance Due Date Last Done Comments [facility]-Depression Screening 2003 [facility]-HIV Screening 2003 [facility]-Hepatitis C Screening 2003 [facility]-Infant/Child/Adol SDOH Screenings 2003 [facility]- SDOH Screenings 2021 [facility]-Adult SDOH Screenings 2021 [facility]-Pap Smear 02/22/2024 [facility]-DTaP,Tdap,and Td Vaccines (7 - Td or Tdap) 07/04/2024 07/04/2014, 06/06/2007, 05/26/2004, Additional history exists [id number]-28 Vaccine ( - season) 2024 [facility]-Influenza Vaccine [...] age to complete this topic Care Teams Mobile Ui/Ux Designer Relationship Specialty Start Date End Date Harry Hassan MD [address] [place] [address] [facility] - General 06/19/20
--- OUTSIDE RECORDS SUMMARY | 2024-12-19 12:23 | XMS_ITS | Encounter Summary ---
Author Organization [facility] Address [address] [place] [address] Care Team Providers Care Traffic Investigator Name Role Phone Lorena Malik APRN Primary Care Provider [phone] Reason for Visit * Reason Onset Date Comments STICKLEN - MRI APPT REQ 11/08/2024 Encounter Details Date Type Department Care Team (Late st Contact Info) Description 11/08/2024 Telephone [facility] [address] [place] [address] Meli Sánchez PA-C [address] [place] [address] STICKLEN - MRI APPT REQ Social History [...] on filedocumented in this encounter Care Teams Traffic Investigator Relationship Specialty Start Date End Date Lorena Malik APRN [address] [place] [id number] PCP - General Nurse Practitioner 07/03/24 documented as of this encounter
--- OUTSIDE RECORDS SUMMARY | 2024-12-19 12:24 | XMS_ITS | Encounter Summary ---
Author Organization [facility] Address [address] [place] [id number] Care Team Providers Care Estimator Lumber Name Role Phone Lorena Malik APRN Primary Care Provider [phone] Encounter Details Date Type Department Care Team (Late st Contact Info) Description 10/09/2024 Documentation [facility] [address] [place] [id number] Meli Sánchez PA-C [address] [facility] [address] [place] [address] Social History Tobacco Use Types Packs/Day Years [...] on filedocumented in this encounter Care Teams Estimator Lumber Relationship Specialty Start Date End Date Lorena Malik APRN [address] [place] [id number] PCP - General Nurse Practitioner 07/03/24 documented as of this encounter
--- NOTE | 2024-12-19 13:00 | US_ITS ---
PROCEDURE: US TRANSVAGINAL CLINICAL INDICATION: iud placement COMPARISON: CT CT ABDOMEN PELVIS W CON from 06/14/2022 US US TRANSVAGINAL from 06/15/2023 FINDINGS: Transvaginal sonographic images of the pelvis were obtained. UTERUS: 8.0cm x 4.0cmx 3.8 cm anteverted with a combined endometrial thickness of 11.1mm. Three is an IUD within the uterine cavity in the correct position. There is a small amount of fluid within the cervical canal. LEFT OVARY: 3.5 cmx3.1cmx2.4cm with a volume of 13.4ml. There are multiple small peripheral follicles. RIGHT OVARY: 3.9 cmx 3.1cmx3.0cm with a volume of 19ml. There are multiple small peripheral follicles. Both ovaries are seen and appear polycystic. Doppler flow to both ovaries are seen. There is no fluid in the cul-de-sac. IMPRESSION: 1. Anteverted uterus normal in shape and size. The endometrium is upper limits of normal size at 11.1 mm. 2. There is an IUD within the uterine cavity in the correct position. Similar appearance to June 15, 2023 ultrasound. 3. Both ovaries are seen and appear polycystic. 4. No fluid in the cul-de-sac. Dictated by: Shreyas Pendleton MD 12/19/2024 17:38 Shreyas Pendleton MD in [place] 12/19/2024 17:38
== END 2024-12-19 23:59 | disposition home or self-care (01) ==
LOC: RAD 12:21
PROVIDERS: PCP Nurse Practitioner; Visit Provider Obstetrics & Gynecology
DX: N85.4 Malposition of uterus (principal); E28.2 Polycystic ovarian syndrome; R10.20 Pelvic and perineal pain unspecified side; Z30.431 Encounter for routine checking of intrauterine contraceptive device
CPT/HCPCS: 76830